=== PATIENT | male | born 1940 | race Caucasian/White ===

== ENCOUNTER 2016-09-28 10:59 | Outpatient (CLI) | payer MEDICARE, BC ==
[~2016-09-28] VITALS: Ht 175.3 cm; Wt 96.4 kg
--- NOTE | ~2016-09-28 | OP ---
PATIENT NAME: MIGUEL CADET MEDICAL RECORD: [id number] :38 LOCATION:D.CAT ADMISSION DATE: SURGEON: CIRO MARTINEZ MD DATE OF OPERATION: 09/28/2016 PROCEDURE: Left heart catheterization, selective coronary angiography, right femoral artery approach. CATHETERS: A 5-Divehi sheath, 5/4 left and right Michelle, 5/4 pig. The procedure was well tolerated. The patient returned to funes. Sheath removed. ExoSeal device placed. FINDINGS: Left ventriculography 30-degree BENJAMIN view, normal wall motion and normal systolic function. CORONARY ANATOMY: Left main: Left main is free of disease. LAD: Free of disease in the diagonal system. CIRCUMFLEX: Area of previous stenting is widely patent and no progression of inaja disease. No evidence of restenosis. RIGHT CORONARY ARTERY: Free of disease. IMPRESSION: A widely patent stent, no evidence of restenosis, no progression of inaja disease. TRANSINT:[id number] Voice Confirmation ID: [id number] DOCUMENT ID: [id number] CIRO MARTINEZ MD CC: [id number] DICTATION DATE: 09/28/16 1452 CUSTOMER ENGAGEMENT REPRESENTATIVE: 09/29/16 0017 DEP CLI 09/28/16 [place] [id number] [place] [id number]
--- NOTE | ~2016-09-28 | HEMODYNAMI ---
PATIENT:MIGUEL CADET MEDICAL RECORD: [id number] : 38 LOCATION:DSUE ADMISSION DATE: 09/28/16 Generatedon:09/28/201614:51 Patient name: MIGUEL CADET Patient #: [id number] SSN: : 1940 Date of study: 09/28/2016 Page: Of Hemodynamic Procedure Report Patient Data Patient Demographics Procedure consent was obtained First Name: MIGUEL Gender: Male Last Name: CHICHI : 1940 [facility] Initial: H Age: 76 year(s) Patient #: [id number] Race: Unknown Additional ID: [id number] Contact details Address: [address] [place] [address] State: [place] City: [facility] Zip code: [address] Admission Admission Data Admission Date: 09/28/2016 Admission Time: 10:59 Lab Results Lab Result Date: 09/28/2016 Lab Result Time: 0:00 Biochemistry Name Units Result Min Max BUN mg/dl 16 --(---*)-- 7 18 Creatinine mg/dl 1.3 --(---*)-- 0.6 1.3 CBC Name Units Result Min Max Hemoglobin g/dl 13.9 --(*---)-- 13.5 17.5 Procedure Procedure Types Cath Procedure Diagnostic Procedure [facility] w/Coronaries Miscellaneous Procedures Moderate Sedation up to 15 minutes Procedure Description Procedure Date Procedure Date: 09/28/2016 Procedure Start Time: 14:38 Procedure End Time: 14:51 Procedure Staff Name Function Jonathan Melo MD Performing Physician Wilton Fleming RT Scrub Yessi Bennett RN Nurse Higinio Reyes RT Monitor Doris Lozano RN Nurse Procedure Data Cath Procedure Fluoroscopy Diagnostic fluoroscopy Total fluoroscopy Time: 1.3 time: 1.3 min min Diagnostic fluoroscopy Total fluoroscopy dose: 600 dose: 600 mGy mGy Contrast Material Contrast Material Type Amount (ml) Isovue 300 79 Entry Location Entry Primary Successful Side Size Upsize Upsize Entry Closure Succes sful Closure Location (Fr) 1 (Fr) 2 (Fr) Remarks Device Remarks Femoral Right 5 Fr Exoseal artery Estimated blood loss: 10 ml Diagnostic catheters Device Type Used For End Catheter Placement Cordis 5Fr JL 4.0 Procedure Catheter (MP) Cordis 5Fr 3DRC Catheter Procedure (MP) Cordis 5Fr Pigtail Procedure Catheter (MP) Procedure Complications No complications Procedure Medications Medication Administration Route Dosage Oxygen NC 2 l/min Lidocaine 2% added to field 20 Heparin Flush Bag added to field 2 bags (1000units/500ml NS) 0.9% NaCl I.V. 100 ml/hr Versed I.V. 1 mg Fentanyl I.V. 50 mcg Versed I.V. 1 mg Fentanyl I.V. 50 mcg Hemodynamics Rest HGB: 13.9 (g/dl) Heart Rate: 65 (bpm) Pressure Samples Time Site Value (mmHg) Purpose Heart Use Rate(bpm) 14:44 LV 156/8,22 Snapshot 77 14:45 AO 155/49(95) Pullback 72 14:45 LV 150/0,31 Pullback 72 Gradients Valve Time Site 1 Site 2 Mean SEP/DFP Peak To Heart Use (mmHg) (sec/min) Peak Rate (mmHg) (bpm) Aortic 14:45 LV AO 0 22 0 72 150/0,31 155/49(95) Calculations Valve P-P Mean Valve Index Valve Source Name Gradient Area Flow (cm2) Aortic 0 0 0 0 Snapshots Pre Cath Intra NCS Post Cath Vital Signs Time Heart Resp SPO2 NIBP (mmHg) Rhythm Pain Sedation Rate (ipm) (%) Status Level (bpm) 14:24:02 64 12 99 143/77(120) NSR 0 (11) 10(A) , No pain 14:28:14 65 19 94 142/78(113) NSR 0 (11) 10(A) , No pain 14:32:30 68 17 97 153/85(116) NSR 0 (11) 10(A) , No pain 14:36:48 70 16 96 142/83(124) NSR 0 (11) 9(A) , No pain 14:41:02 70 17 97 144/84(125) NSR 0 (11) 9(A) , No pain 14:45:12 73 17 97 140/85(126) NSR 0 (11) 10(A) , No pain 14:49:26 73 18 95 139/80(118) NSR 0 (11) 10(A) , No pain Medications Time Medication Route Dose Verified Delivered Reason Notes Effe ctiveness by by 14:23:07 Oxygen NC 2 Jonathan Buffie used for l/min [facility] A Bennett RN procedure MD 14:23:13 Lidocaine 2% added 20ml Jonathan Jonathan for local to vial [facility] anesthetic field MD MUHAMMAD 14:23:19 Heparin Flush added 2 Jonathan Jonathan used for Bag to bags [facility] procedure (1000units/500ml field MD MUHAMMAD NS) 14:23:28 0.9% NaCl I.V. 100 Jonathan Buffie Per ml/hr [facility] A Bennett RN physician 14:33:01 Versed I.V. 1 mg Jonathan Buffie for [facility] A Bennett RN sedation 14:33:06 Fentanyl I.V. 50 Jonathan Buffie for mcg [facility] A Bennett RN sedation 14:39:57 Versed I.V. 1 mg [address] for [facility] A Bennett RN sedation 14:40:02 Fentanyl I.V. 50 Jonathan Buffie for mcg [facility] A Bennett RN sedation Procedure Log Time Note 13:45:29 Yessi Bennett RN sent for patient. Start room use. 14:13:11 Diagnostic Cath Status : Elective 14:13:36 Time tracking: Regular hours 14:13:40 Plan of Care:Hemodynamics will remain stable., Cardiac rhythm will remain stable., Comfort level will be maintained., Respiratory function will remain adequate., Patient/ family verbilizes understanding of procedure., Procedure tolerated without complication., Recovers from procedure without complications.. 14:13:46 Patient received from Pre/Post Procedure Room to [facility] 2 Alert and oriented. Tansferred to table in Supine position. 14:13:47 Warm blankets applied, and josemanuel hugger turned on for patient comfort. 14:13:48 Correct patient and procedure confirmed by team. 14:13:49 Signed procedure consent form obtained from patient. 14:13:50 ECG and BP/O2 sat monitors applied to patient. 14:22:55 Vital chart was started 14:23:07 Oxygen 2 l/min NC was administered by Yessi Bennett RN; used for procedure; 14:23:13 Lidocaine 2% 20ml vial added to field was administered by Jonathan Melo MD; for local anesthetic; 14:23:19 Heparin Flush Bag (1000units/500ml NS) 2 bags added to field was administered by Jonathan Melo MD; used for procedure; 14:23:28 0.9% NaCl 100 ml/hr I.V. was administered by Yessi Bennett RN; Per physician; 14:23:34 Baseline sample Acquired. 14::38 Rhythm: sinus rhythm 14:23:39 Full Disclosure recording started 14::23 H&P Date Dictated: 09/21/2016 Within 30 days and on chart., H&P Addendum completed by physician on day of procedure. (MUST COMPLETE FOR ALL OUTPATIENTS). 14:24:24 Pre-procedure instructions explained to patient. 14:24:25 Pre-op teaching completed and patient verbalized understanding. 14:24:26 Family in waiting room. 14:24:27 Patient NPO since Midnight. 14:24:35 Is the patient allergic to Iodine/contrast media? No. 14:24:36 Was the patient premedicated? No 14:24:42 Is patient on blood thinner?No 14:24:43 Patient diabetic? No. 14:24:46 Previous problem with sedation/anesthesia? No ? 14:24:47 Snore? Yes 14:24:48 Sleep apnea? Yes 14:24:49 Deviated septum? No 14:24:50 Opens mouth fully? Yes 14:24:50 Sticks out tongue? Yes 14:24:54 Airway obstruction? Yes copd 14:25:00 Dentures? Yes in tight 14:25:04 Pre procedure: right dorsailis pedis pulse 1+ Palpable, but thready & weak; easily obliterated 14:25:07 Patient pain scale 0/10 ?. 14:25:14 IV patent on arrival in left forearm with 0.9% NaCl at [facility]. 14:26:47 Lab Result : BUN 16 mg/dl 14::47 Lab Result : Creatinine 1.3 mg/dl 14::47 Lab Result : Hemoglobin 13.9 g/dl 14:26:52 Lab results completed and on chart. 14:26:55 Right groin area was prepped with chlora-prep and draped in sterile fashion 14:26:56 Alarms reviewed by R. N. 14:26:56 Sharps counted by scrub and verified by R.N. 14:28:54 Physician paged 14:29:01 Zero performed for pressure channel P1 14:32:45 --------ALL STOP TIME OUT------ 14:32:46 Final Timeout: patient, procedure, and site verified with staff and physician. All members of the team are in agreement. 14:32:53 Physical assessment completed. ASA score P 2 - A patient with mild systemic disease as per Jonathan Melo MD. 14:32:54 Right groin site verified by team. 14:32:56 Sedation plan: IV Moderate Sedation Versed, Fentanyl 14:33:01 Versed 1 mg I.V. was administered by Yessi Bennett RN; for sedation; 14:33:06 Fentanyl 50 mcg I.V. was administered by Yessi Bennett RN; for sedation; 14:33:52 Fatimah Pratt RT(R) was relieved by Higinio Reyes RT(R) as monitoring person 14:37:25 Use device set Femoral Dx 14:37:28 Tegaderm 4 x 4 opened to sterile field. 14:37:30 Acist Hand Control opened to sterile field. 14:37:30 Acist Manifold opened to sterile field. 14:37:31 Acist Syringe opened to sterile field. 14:37:32 Bag Decanter opened to sterile field. 14:37:32 Medline Cath Pack opened to sterile field. 14:37:32 Terumo 5Fr [place] Sheath opened to sterile field. 14:37:33 St Dayo 260cm J .035 wire opened to sterile field. 14:37:34 Diagnostic Infinity 5Fr Multipack catheter opened to sterile field. 14:38:06 Procedure started. 14:38:10 Local anesthetic to right femoral artery with Lidocaine 2% by Jonathan Melo MD.INITIAL ACCESS ONLY 14:39:28 A 5 Fr sheath was inserted into the Right Femoral artery 14:39:57 Versed 1 mg I.V. was administered by Yessi Bennett RN; for sedation; 14:40:02 Fentanyl 50 mcg I.V. was administered by Yessi Bennett RN; for sedation; 14:40:09 A Cordis 5Fr JL 4.0 Catheter (JIGAR) was advanced over the wire and used for Procedure. 14:41:06 LCA angiography performed. 14:41:46 Catheter removed. 14:41:52 A Cordis 5Fr 3DRC Catheter (MP) was advanced over the wire and used for Procedure. 14:43:17 RCA angiography performed. 14:43:30 Catheter removed. 14:43:35 A Cordis 5Fr Pigtail Catheter (MP) was advanced over the wire and used for Procedure. 14:44:56 LV angiography performed. 14:44:57 LV gram done using BENJAMIN 14:45:04 EF : 55 % 14:45:08 LV hemodynamics recorded. 14:45:12 Injector settings: Ml/sec: 10, Volume: 20, 14:45:27 Catheter removed. 14:45:36 Cordis 5Fr Exoseal opened to sterile field. 14:45:46 Sheath removed intact; hemostasis achieved with Exoseal to the Right Femoral artery. 14:45:49 Procedure ended.(Physican Out) 14:46:03 Fluoroscopy time 01.30 minutes. 14:46:06 Fluoroscopy dose: 600 mGy 14:46:06 Flurop Dose total: 600 14:46:09 Contrast amount:Isovue 300 79ml. 14:46:11 Sharps counted by scrub and verified by R.N. 14:46:12 Insertion/operative site no bleeding no hematoma. 14:46:14 Post-op/insertion site Right Femoral artery dressed using a 4 x 4 and Tegaderm. 14:46:16 Post Procedure Pulses reassessed and unchanged 14:46:18 Post-procedure physical assessment completed. ASA score P 2 - A patient with mild systemic disease as per Jonathan Melo MD. 14:46:21 Post procedure rhythm: unchanged. 14:46:24 Estimated blood loss: 10 ml 14:46:25 Post procedure instruction explained to patient.Patient verbalizes understanding. 14:46:25 Patient needs reinforcement of post procedure teaching. 14:46:33 Procedure type changed to Cath procedure, Diagnostic procedure, LHC, LHC w/Coronaries, Miscellaneous Procedures, Moderate Sedation up to 15 minutes 14:46:37 Procedure Complication : No complications 14:47:16 Procedure and supply charges have been captured, reviewed, submitted and are correct. 14:50:51 Vital chart was stopped 14:50:51 See physician's report for complete and final results. 14:50:55 Report given to Pre/Post Procedure Room. 14:50:59 Patient transfered to Pre/Post Procedure Room with Stretcher. 14:51:01 Procedure ended. 14:51:01 Full Disclosure recording stopped 14:51:09 End room use (Document Last) Device Usage Item Name Manufacture Quantity Catalog Hospital Part Current Minimal Lo t# / Number Charge Number Stock Stock Serial# Code Tegaderm 4 3M 1 [id number] 5 x 4 Acist Hand Acist 1 57706 300402 516487 689192 5 Control [employer] Acist Acist 1 37568 630227 909979 902698 5 Manifold [employer] Inc Acist Acist 1 82013 169618 144531 654914 20 Syringe [employer] Inc Bag Microtek 1 2002S 180044 70930 722772 5 Decanter [employer] Inc[employer] Medline Cardinal 1 [id number] 416989 88605 544370 5 Cath Pack Health Terumo 5Fr Terumo 1 [id number] 024956 302283 115505 [address] St Dayo 1 882540 926823 051661 707473 30 260cm J .035 wire Diagnostic Cardinal 1 [id number] 421934 71090 056064 30 Infinity Health 5Fr Multipack catheter Cordis 5Fr Cardinal 1 [id number] 5 JL 4.0 Health Catheter (MP) Cordis 5Fr Cardinal 1 [id number] 5 3DRC Health Catheter (MP) Cordis 5Fr Cardinal 1 739430 5 Pigtail Health Catheter (MP) Cordis 5Fr Cardinal 1 EX500 007727 726617 986991 10 [facility] Health Signature Audit [place] Stage Time Signature Unsigned Intra-Procedure 09/28/2016 Higinio Reyes 2:51:35 PM RT(R) Signatures Monitor : Higinio Reyes RT Signature : Date : Time : [facility] [address] [place] [address]
[~2016-09-28 10:59] MED LIST: CELEBREX 100 M100 MG PO; HYDROCODON-ACE1 EAC7 PO; LIPITOR20 MG PO
[2016-09-28 11:48] LABS: BASOPHILS 0.1 % (0-2); EOSINOPHILS 0.5 % (0-7); HEMATOCRIT 41.3 % (42.0-54.0); HEMOGLOBIN 13.9 g/dL (13.5-17.5); IMMATURE GRANULOCYTES 0.2 % (0-5); LYMPHOCYTES 17.8 % (15-50); MCH 32.9 pg (26.0-34.0); MCHC 33.7 g/dL (31.0-37.0); MCV 97.6 fL (80.0-100.0); MEAN PLATELET VOLUME 9.7 fL (7.4-10.4); MONOCYTES 11.6 % (2-11); NEUTROPHILS 69.8 % (40-80); PLATELET COUNT 220 10x3/uL (130-400); RBC 4.23 10x6/uL (4.20-6.10); RDW 13.9 % (11.5-14.5); WBC 10.5 10x3/uL (4.8-10.8)
[2016-09-28 11:49] VITALS: BP 141/74; Ht 175.3 cm; Wt 96.4 kg
[2016-09-28] MEDS ORDERED: ALBUTEROL2.5 MG/3 M INH (11:55)
[2016-09-28] MEDS ORDERED: DULERA 200 MCG8.8 GM INH (11:55)
[2016-09-28] MEDS ORDERED: BAYER CHEWABLE81 MG PO (11:56)
[2016-09-28] MEDS ORDERED: FUROSEMIDE20 MG PO (11:57)
[2016-09-28] MEDS ORDERED: FUROSEMIDE40 MG PO (11:57)
[2016-09-28] MEDS ORDERED: HYDROCODON-ACE1 EAC7 PO (11:58)
[2016-09-28] MEDS ORDERED: POTASSIUM CHLO10 ME1 PO (11:59)
[2016-09-28] MEDS ORDERED: SPIRIVA RESPIMAT4 G1 INH (12:00)
[2016-09-28] MEDS ORDERED: PAROXETINE HCL10 MG PO (12:01)
[2016-09-28 12:10] LABS: ANION GAP 12.9 mmol/L (8-16); CALCIUM 8.7 mg/dL (8.5-10.1); CARBON DIOXIDE 28.3 mmol/L (21.0-32.0); CREATININE - SERUM 1.3 mg/dL (0.6-1.3); POTASSIUM - SERUM 4.2 mmol/L (3.5-5.1)
--- NOTE | 2016-09-28 15:15 | NUR ---
RIGHT GROIN CDI, NO HEMATOMA OR BLEEDING NOTED
--- NOTE | 2016-09-28 15:45 | NUR ---
NO CHANGE IN RIGHT GROIN- CDI
== END 2016-09-28 17:00 | disposition home or self-care (01) ==
LOC: D.CATH 10:59
PROVIDERS: Internal Medicine Interventional Cardiology
DX: I25.119 Atherosclerotic heart disease of native coronary artery with unspecified angina pectoris (principal); Z95.5 Presence of coronary angioplasty implant and graft; Z01.812 Encounter for preprocedural laboratory examination

== ENCOUNTER → 2018-12-13 12:58 | Outpatient (CLI) | payer MEDICARE, BC ==
[2016-09-28 11:49] VITALS: BMI 31.3
[~2018-12-13 12:58] MED LIST changes: +ALBUTEROL2.5 MG/3 M INH; +BAYER CHEWABLE81 MG PO; +DULERA 200 MCG8.8 GM INH; +FUROSEMIDE20 MG PO; +FUROSEMIDE40 MG PO; +PAROXETINE HCL10 MG PO; +POTASSIUM CHLO10 ME1 PO; +SPIRIVA RESPIMAT4 G1 INH
== END | disposition home or self-care (01) ==
LOC: D.MRI 12:58
PROVIDERS: ATTEND Family Medicine
DX: S32.000A Wedge compression fracture of unspecified lumbar vertebra, initial encounter for closed fracture (principal)